=== PATIENT | female | born 1955 | race Caucasian/White ===

== ENCOUNTER 2019-09-19 17:31 | Emergency (ER) | payer MEDICARE, SELFPAY ==
[2019-09-19 17:33] VITALS: BP 171/108; PULSE 101; RESP 16; TEMP 37.2; O2SAT 96; BMI 26.6
--- NOTE | 2019-09-19 17:49 | ED.DCSUM_ITS ---
- ER Visit Summary Date of Service: 09/19/19 Chief Complaint: Right foot injury History of Present Illness: The patient is a 63 F who presents with injury to her right foot that occurred today. Patient states she was carrying a box and hit her fifth toe on the door frame. Patient states her toe is pointing in the wrong direction. Patient states her pain is sharp. Patient states her pain is worse with ambulation. Patient admits to some numbness and tingling initially but states this has resolved. Patient denies any weakness. Patient denies any other injuries. Physical Examination: Vital signs are stable. Patient is afebrile. Patient is in no acute distress. Musculoskeletal exam reveals tenderness and deformity of the right fifth toe. Pedal pulses are equal bilaterally. Sensation was intact light touch in all digits. Capillary refill was less than 2 seconds in all digits. Range of motion was limited in all motions of the right fifth toe secondary to pain. Test Results: X-rays of the right foot were obtained. There is a fracture of the fifth proximal phalanx. This was interpreted by the radiologist and reviewed by myself. Emergency Department Course and Treatment: Patient was given an ice pack. The right fifth toe was anesthetized with 1% plain lidocaine via digital block. The toe was reduced. The toe was estefany taped to the fourth toe. Patient was placed in a postop shoe. Patient was instructed to ice and elevate the right foot. Patient was instructed to follow-up with her primary care physician in 5 to 7 days. Patient understood and was agreeable with the plan. All questions were answered. Disposition: Discharge home Impression: Acute fracture right fifth proximal phalanx This note was generated with [employer] dictation software. It may contain incorrect words, spelling, and punctuation that were not noted in review of the chart prior to signing ED Disposition - Plan for ED Patient: Disposition: Home or Assisted Living Diagnosis: Fracture of fifth toe, right, closed Instructions: ED Fx Toe Closed Referrals: Tony Page MD [Primary Care Provider] - 5-7 Days
--- NOTE | 2019-09-19 17:54 | RAD_ITS ---
STUDY: X-RAY - RIGHT FOOT CLINICAL: Female, 63 years old. STUBBED RIGHT FOOT ON A DOOR FRAME, PINKY TOE IS DEFORMED TECHNIQUE: 3 view(s) of the foot. COMPARISON: None. FINDINGS: There is a mildly angulated mildly displaced fracture of the mid shaft fifth proximal phalanx. No other acute abnormalities. Normal talus, calcaneus, and tarsal bones. Normal visualized subtalar, talonavicular, calcaneocuboid, tarsal and tarsometatarsal articulations. Normal second-fifth metatarsi. Hallux valgus with markedly deformed distal fifth metatarsal. Normal tibial and fibular sesamoid bones. Normal interphalangeal joint of the great toe. Normal phalanges of the great toe. Normal second through fifth metatarsophalangeal joints. Normal interphalangeal joints and phalanges of the second-fourth toes. The soft tissue structures are unremarkable. RAD/Foot min 3 Views IMPRESSION: Fracture of the fifth proximal phalanx. Electronically Signed: Stewart Sanchez MD at 18:13 EDT , Service support ,
[2019-09-19 19:48] VITALS: BP 149/74; PULSE 79; RESP 16
== END 2019-09-19 19:51 | disposition home or self-care (01) ==
PROVIDERS: Emergency Provider Emergency Medicine; PCP Internal Medicine
DX: S92.501A Displaced unspecified fracture of right lesser toe(s), initial encounter for closed fracture (principal); W22.09XA Striking against other stationary object, initial encounter; F17.210 Nicotine dependence, cigarettes, uncomplicated
CPT/HCPCS: 28515; 73630; 99283

== ENCOUNTER 2022-02-11 23:28 | Emergency (ER) | payer MEDICARE, SELFPAY ==
[2022-02-11 23:29] VITALS: BP 167/87; PULSE 74; RESP 16; TEMP 36.6; O2SAT 97; BMI 25.8
[2022-02-11 23:41] VITALS: BP 167/81
--- NOTE | 2022-02-11 23:56 | CT_ITS ---
STUDY: CT BRAIN WITHOUT CONTRAST REASON FOR EXAM: Female, 66 years old. headache RADIATION DOSAGE (If Supplied By Facility): CTDIvol = ( 44.99 ) mGy, DLP = ( 748.30 ) mGycm TECHNIQUE: Transaxial CT imaging of the brain was performed without administration of intravenous contrast material. Individualized dose optimization techniques were used for this CT. COMPARISON: No relevant priors. FINDINGS: Normal soft tissue structures. Normal calvarium. Normal size ventricles and extra-axial spaces for the patient''s age. Normal white matter tracts of the cerebral hemispheres. Normal basal ganglia and thalami. Normal brainstem. Normal cerebellum. There is no intracranial hemorrhage. There are no findings of an acute ischemic infarction. Normal visualized paranasal sinuses. CT/Brain/Head without Contrast IMPRESSION: Normal unenhanced CT scan of the brain. Electronically Signed: Eloisa Carver MD at 1:02 EST ,
--- NOTE | 2022-02-11 23:56 | EKG12_ITS ---
Test Reason : DYSRHYTHMIA Blood Pressure : / mmHG Vent. Rate : 076 BPM Atrial Rate : 076 BPM P-R Int : 178 ms QRS Dur : 080 ms QT Int : 366 ms P-R-T Axes : 063 051 058 degrees QTc Int : 411 ms Normal sinus rhythm with sinus arrhythmia Normal ECG Confirmed by VIRGINIA WATTS, APRIL ([id number]), managing editor WESLEY GREENBERG ([id number]) on 02/15/2022 10:52:28 AM Referred By: VICTOR MANUEL Confirmed By:VIANEY COLEMAN MD
[2022-02-12 00:15] LABS: Absolute Lymphocyte Count 1.92 X10^3/uL (0.83-4.51); Absolute Neutrophil Count 3.2 X10^3/uL (2.0-7.7); Basophil# 0.05 X10^3/uL; Basophil% 0.9 % (0-1); Eosinophil# 0.12 X10^3/uL; Hemoglobin 14.2 g/dL (12.0-15.0); Lymphocyte # 1.92 X10^3/ul (0.83-4.51); Lymphocyte % 32.7 % (19-41); Mean Corpuscular Volume 87.8 fL (81-99); Mean Platelet Vol. 12.5 fl (6.2-12.0); Monocyte# 0.52 X10^3/uL; Monocyte% 8.8 % (0-10); NRBC Flagged by Analyzer 0 % (0-5); Neutrophil # 3.24 X10^3/uL (2.7-7.7); Neutrophil % 55.1 % (47-70); Platelet Count 206 K/mm3 (150-450); RBC Distribution Width CV 12.4 % (11.6-14.6); RBC Distribution Width SD 39.8 fl (35.1-43.9); White Blood Count 5.9 K/mm3 (4.4-11.0)
[2022-02-12] MEDS: cloNIDine HCl 0.1 MG Tablet PO (00:27)
[2022-02-12 00:29] VITALS: BP 149/89; PULSE 76
[2022-02-12 00:33] LABS: Anion Gap 4 (5-15); BUN 25 mg/dL (7-18); BUN/Creat Ratio 33.8 RATIO (10-20); Calcium,Total 9.5 mg/dL (8.5-10.1); Chloride 112 mmol/L (98-107); Creatinine, Serum 0.74 mg/dL (0.55-1.02); EST Glomerular Filtration Rate 83 mL/min (>60); Est Glom Filt Rate - Afr Amer 100 mL/min (>60); Estimated Creatinine Clearance 48.45 ml/min; Glucose 104 mg/dL (74-106); Potassium 3.5 mmol/L (3.5-5.1); Sodium Level 142 mmol/L (136-145); Troponin-I HS 10 pg/mL (3.0-54.0)
[2022-02-12 01:13] VITALS: BP 147/75; PULSE 79; RESP 15; O2SAT 98
--- NOTE | 2022-02-12 01:34 | EX.ED.DYSGE1 ---
HPI History of Present Illness Chief Complaint: Hypertension Narrative Narrative: Patient is a 66-year-old female who reports no significant past medical history. She states that she went for a follow-up surgical appointment today and in the office her blood pressure was elevated reading approximate 170/90. She states that she does not have a history of hypertension and that she typically runs 120/80. She states that she did not come to the hospital at that time because she had to go bowling this evening. She states she was able to bowl without difficulty but afterwards was concerned about the elevated blood pressure because she felt like her legs were kind of weak and she was slightly off balance and so she comes the ER for evaluation. She denies any chest pain or shortness of breath. She does report a mild headache at this time. She denies any stimulant use or illicit drug use PFSH PFSH Allergy/AdvReac Type Severity Reaction Status Date / Time acetaminophen [From Percocet] AdvReac Vomiting Verified 02/11/22 23:29 oxycodone [From Percocet] AdvReac Vomiting Verified 02/11/22 23:29 Social History Smoking Status: Current every day smoker tobacco type: cigarettes ROS ROS ED Constitutional Constitutional ED: Denies chills or fever(s) Eyes Eyes: Denies change in vision ENT ENT ED: Denies sore throat Cardiovascular Cardiovascular: Denies chest pain Respiratory/Chest Respiratory/Chest: Denies cough or dyspnea Gastrointestinal Gastrointestinal: Denies abdominal pain, diarrhea, nausea or vomiting Genitourinary Genitourinary ED: Denies dysuria Musculoskeletal Musculoskeletal: Denies myalgias Integumentary Denies rash Neurologic Neurologic: Reports headache(s) Psychiatric Psychiatric: Denies anxiety Hematologic/Lymphatic Hematologic/Lymphatic: Denies easy bleeding or easy bruising EXAM Physical Exam Const Vital Signs: 02/11/22 23:29 02/11/22 23:33 02/11/22 23:41 Temperature 98 F Temperature Source Temporal Pulse Rate 74 Respiratory Rate 16 Respiratory Effort Normal Respiratory Pattern Normal Blood Pressure 167/87 H 167/81 H Blood Pressure Mean 113 109 Pulse Ox 97 Oxygen Delivery Method Room Air 02/12/22 00:29 02/12/22 01:13 02/12/22 01:37 Temperature Temperature Source Pulse Rate 76 79 74 Respiratory Rate 15 24 H Respiratory Effort Respiratory Pattern Blood Pressure 149/89 H 147/75 H 147/84 H Blood Pressure Mean 109 99 Pulse Ox 98 97 Oxygen Delivery Method Room Air Positive well nourished and well developed General Appearance ED: well developed HEENT Reports moist mucous membranes Eyes PERRL and EOMs intact bilaterally Neck supple Neck Narrative: No nuchal rigidity or meningeal signs noted Resp normal respiratory effort and clear to auscultation bilaterally Cardio regular rate and regular rhythm Rate: other Other Details: Radial pulses are plus 2 out of 4 bilaterally are equal and symmetric GI normal to inspection, nondistended, normoactive bowel sounds, non-tender and non-distended GI Narrative: No voluntary guarding or rigidity no pulsatile mass Auscultation: normoactive bowel sounds Palpation: soft Back/Spine Back/Spine Narrative: No saddle anesthesia negative straight leg raise no clonus or Babinski patellar reflexes are plus 2 out of 4 bilaterally Extremity normal to inspection Neuro oriented x3 and CN's II-XII intact bilaterally Neuro Narrative: Cranial nerves II through XII are grossly intact there are no focal neurologic deficits. No pronator drift no dysmetria no truncal ataxia. NIH stroke scale score of 0. Sensorium / Orientation: alert Psych mental status grossly normal Skin no rashes or lesions noted MDM MDM MDM Narrative Medical decision making narrative: Patient presented to the ER mildly hypertensive with stroke scale score of 0. She denied any chest pain or change in vision or abdominal pain but did report a mild headache so elected perform a head CT as well as check for basic blood work to rule out endorgan damage. Head CT revealed no acute findings and labs revealed no signs of endorgan damage. She was given oral clonidine and her blood pressure reduced between 15 and 25% which is the value considered acceptable for ER reduction. On reevaluation she is resting comfortably neuro exam remains normal. Therefore at this time with improvement of blood pressure and no signs of endorgan damage on work-up she is otherwise safe for discharge. Lab Data Attestation: I reviewed the patient's lab results. Labs: Laboratory Results - last 24 hr 02/12/22 02/12/22 00:10 00:10 WBC 5.9 RBC 4.90 Hgb 14.2 Hct 43.0 MCV 87.8 MCH 29.0 MCHC 33.0 RDW Std Deviation 39.8 RDW Coeff of Dominga 12.4 Plt Count 206 MPV 12.5 H Immature Gran % (Auto) 0.500 Neut % (Auto) 55.1 Lymph % (Auto) 32.7 [place] % (Auto) 8.8 Eos % (Auto) 2.0 Baso % (Auto) 0.9 Absolute Neuts (auto) 3.2 Absolute Lymphs (auto) 1.92 Nucleated RBC % 0 Sodium 142 Potassium 3.5 Chloride 112 H Carbon Dioxide 26.0 Anion Gap 4 L BUN 25 H Creatinine 0.74 Estim Creat Clear Calc 48.45 Est GFR (MDRD) Af Amer 100 Est GFR (MDRD) Non-Af 83 BUN/Creatinine Ratio 33.8 H Glucose 104 Calcium 9.5 Troponin I High Sens 10 Radiography Diagnostic Testing: Clinical Impression(s) from Imaging Studies Brain CT 02/11/22 23:56 IMPRESSION: Normal unenhanced CT scan of the brain. Electronically Signed: Eloisa Carver MD at 1:02 EST , Discharge Plan Triage Chief Complaint: Hypertension ED Provider: Arnulfo Monson Dx/Rx/DC Orders Clinical Impression: Hypertension Instructions: ED Hypertension, To Be Confirmed Primary Care Provider: Tony Page Referrals: Tony Page MD [Primary Care Provider] - Activity Restrictions/Additional Instructions: Please can continue to monitor your blood pressure once or twice a week to confirm that you have truly developed hypertension. You were given 0.1 mg of clonidine in the ER which did help reduce your blood pressure to an acceptable value. The remainder of your work-up showed no signs of endorgan damage and your head CT was normal. If you have any further concerns return to the ER for repeat evaluation Disposition Disposition: Home, Self Care Discharge Date/Time: 02/12/22 01:45
[2022-02-12 01:37] VITALS: BP 147/84; PULSE 74; RESP 24; O2SAT 97
== END 2022-02-12 01:45 | disposition home or self-care (01) ==
PROVIDERS: Emergency Provider Emergency Medicine; PCP Internal Medicine; Visit Provider Emergency Medicine
DX: I10 Essential (primary) hypertension (principal); F17.210 Nicotine dependence, cigarettes, uncomplicated
CPT/HCPCS: 70450; 80048; 84484; 85025; 93005; 96374; 99284; A4216

== ENCOUNTER 2024-12-06 21:29 | Emergency (ER) | payer MEDICARE, SELFPAY ==
[2024-12-06 21:29] VITALS: BP 161/80; PULSE 100; RESP 19; TEMP 36.6; O2SAT 100; BMI 25.9
--- NOTE | 2024-12-06 22:17 | RAD_ITS ---
PROCEDURE: RAD/Wrist min 3 Views
[2024-12-06] MEDS: Ketorolac 30 MG/ML Syringe IM (22:21)
--- NOTE | 2024-12-07 00:13 | EX.ED.UPPERE ---
HPI History of Present Illness Chief Complaint: Upper Extremity Injury Informant: patient and family (Brother) Narrative Narrative: 69-year-old female states that on Tuesday morning when she woke she had pain in the dorsum of the left wrist. Has progressively gotten worse and is now swollen. She denies any fevers or systemic complaints. She denies any redness or known trauma. She has had a prior tendinitis surgery on the lateral aspect of the wrist as well as carpal tunnel surgery both of which were greater than 10 years ago. No history of gout or known rheumatologic issues. She denies any elbow symptoms. She removed her rings today as there was some mild swelling of the fingers but she has no pain in the hand at strictly on the dorsum of the wrist. PFSH PFSH Medical History no medical history Home Medications ?Medication ?Instructions ?Recorded ?Last Taken ?Type hydrocodone-acetaminophen 5-325mg 1 tab PO Q6H PRN pain 3 days #12 12/06/24 Unknown Rx 5mg-325mg tabs prednisone 20 mg tablet 60 mg (3 x 20 mg) PO DAILY #12 12/06/24 Unknown Rx TABLETS Allergy/AdvReac Type Severity Reaction Status Date / Time acetaminophen (From Percocet) AdvReac Vomiting Verified 12/06/24 21:30 oxycodone (From Percocet) AdvReac Vomiting Verified 12/06/24 21:30 Social History Smoking Status: Current every day smoker tobacco type: cigarettes ROS ROS ED Constitutional Constitutional ED: Denies chills, fever(s) or weight loss Eyes Eyes: Denies change in vision or diplopia ENT ENT ED: Denies ear pain, rhinorrhea or sore throat Cardiovascular Cardiovascular: Denies chest pain, orthopnea, palpitations or racing heartbeat Respiratory/Chest Respiratory/Chest: Denies cough, dyspnea or orthopnea Gastrointestinal Gastrointestinal: Denies abdominal pain, diarrhea, nausea or vomiting Genitourinary Genitourinary ED: Denies dysuria, hematuria or urinary frequency Musculoskeletal Musculoskeletal: Reports other Details: Left wrist pain ; Denies arthralgias, back pain, myalgias or neck pain Integumentary Denies abscess or rash Neurologic Neurologic: Denies headache(s), paresthesias or weakness Psychiatric Psychiatric: Denies anxiety, depression, suicidal ideation or suicidal thoughts Endocrine Endocrinology: Denies polydipsia, polyphagia or polyuria Allergic/Immunologic Allergic/Immunologic ED: Denies mouth swelling, tongue swelling or urticaria EXAM Physical Exam Const Vital Signs: 12/06/24 21:29 Temperature 97.8 F Temperature Source Oral Pulse Rate 100 Respiratory Rate 19 H Blood Pressure 161/80 H Blood Pressure Mean 107 Pulse Ox 100 Oxygen Delivery Method Room Air Positive well nourished and well developed General Appearance ED: well developed HEENT Reports normocephalic, head/scalp atraumatic and moist mucous membranes Eyes PERRL and EOMs intact bilaterally Neck no lymphadenopathy, supple and no JVD Resp normal respiratory effort and clear to auscultation bilaterally Cardio regular rate, regular rhythm and no murmurs GI normal to inspection, nondistended, normoactive bowel sounds and non-tender Palpation: soft Back/Spine no CVA tenderness and normal ROM Extremity Extremity Narrative: There is some mild swelling noted on the dorsum of the left wrist. There is painful supination pronation flexion and extension. There are well-healed surgical scars. Distally there is very minimal swelling of the fingers. No symptoms above the wrist joint. The skin is not red. There is slight warmth to it. General Extremety ED: Negative for edema General Extremity: Negative for edema Neuro oriented x3 and CN's II-XII intact bilaterally Sensorium / Orientation: alert Motor Exam: strength 5/5 throughout Psych mental status grossly normal Mood & Affect: Negative for depressed or tearful Skin no rashes or lesions noted and no wounds MDM MDM MDM Narrative Medical decision making narrative: Differential diagnosis includes fracture arthritis gout inflammatory joint disease infection My independent interpretation of the plain films is chondrocalcinosis. No fracture. No foreign body. Clinically the patient went to bed on Tuesday night feeling well woke with pain in the wrist and swelling. When I place her in a cock up splint. Would encourage anti-inflammatories. I can write for a few [place] for severe pain. I would also do a short burst of prednisone. Had asked that the patient follow-up either with primary care or with orthopedics if continued symptoms. Monitor for fever redness worsening symptoms and return if needed History & Record Review Discussion w/independent historian: Patient and Family Radiography Diagnostic Testing: Clinical Impression(s) from Imaging Studies Wrist X-Ray 12/06/24 22:17 IMPRESSION: No acute or aggressive osseous abnormality. Reading Location: [facility] Discharge Plan Triage Chief Complaint: Upper Extremity Injury ED Provider: Sandip Kaplan Dx/Rx/DC Orders Clinical Impression: Arthritis of left wrist, Swelling of left wrist Prescriptions: New hydrocodone-acetaminophen 5-325 mg tablet 1 tab PO Q6H PRN (Reason: pain) 3 Days Qty: 12 0RF prednisone 20 mg tablet 60 mg PO DAILY Qty: 12 0RF Primary Care Provider: Tony Page Referrals: Judd Levy MD [Med Staff - Active Staff, Orthopedics] - 3-5 Days if not improving Referral Note: for orthopedics Tony Page MD [Primary Care Provider, Internal Medicine] - 3-5 Days if not improving Activity Restrictions/Additional Instructions: I would recommend ice in 20-minute sessions 4-5 times per day. Wrist brace as tolerated especially while sleeping. If you do not wish to use the [place] I would recommend ibuprofen 600 mg 4 times a day as needed for pain. If you are not improving worsening or have concerns you may return to emergency or follow-up with primary care or orthopedics as discussed. Print Language: [place] Disposition Disposition: Home, Self Care Discharge Date/Time: 12/06/24 23:19
== END 2024-12-06 23:19 | disposition home or self-care (01) ==
PROVIDERS: Emergency Provider Emergency Medicine; PCP Internal Medicine; Visit Provider Emergency Medicine
DX: M19.032 Primary osteoarthritis, left wrist (principal); M79.89 Other specified soft tissue disorders; F17.210 Nicotine dependence, cigarettes, uncomplicated
CPT/HCPCS: 73110; 96372; 99283

== ENCOUNTER 2025-01-24 12:33 | Emergency (ER) | payer MEDICARE, SELFPAY ==
[2025-01-24 12:35] VITALS: BP 163/79; PULSE 104; RESP 18; TEMP 36.7; O2SAT 96
--- NOTE | 2025-01-24 14:28 | VDLE_ITS ---
Reason For Study Reason For Study: Right leg pain RIGHT LEFT GSV is normal. CFV is compressible, spontaneous, phasic, competent, CFV is compressible, spontaneous, phasic, competent and demonstrates normal augmentation. and demonstrates normal augmentation. FV is compressible, spontaneous, phasic, competent and demonstrates normal augmentation. POP V is compressible, spontaneous, phasic, competent and demonstrates normal augmentation. T/P Trunk is compressible. PTV is compressible. RT PerV is compressible. Procedure This is a venous duplex using B-mode, color flow and spectral Doppler. Exam performed in department. A preliminary report was called and/or faxed to Dr. Landis. VL/Venous Duplex US, Unilateral Interpretation Summary Deep veins of the right lower extremity are patent and compressible segmentally . There is no evidence of right lower extremity deep vein thrombosis. Valvular competence appears intact within the p roximal deep venous system on the right . The right great saphenous vein appears patent and compressible segmentally. The left common femoral vein is patent and compressible . Ordering Physician: Marco Landis Referring Physician: Tony Page M.D. Performed By: Rebecca Pollard RVT
--- NOTE | 2025-01-24 15:53 | EX.ED.DYSGE1 ---
HPI History of Present Illness Chief Complaint: Lower Extremity Injury Narrative Narrative: Patient is a 69-year-old female who presented to the emergency department the chief complaint of right knee pain and right leg swelling. Patient states that she is concerned that she may have a blood clot in her leg prompting her to come here for further evaluation management. Patient denies recent travel history denies any history of blood clots. Patient denies any direct trauma or injuries. Patient states that she has not taken anything for pain at home prior to coming here today. She notes that this has been going on for the last few days. PFSH PFSH Home Medications ?Medication ?Instructions ?Recorded ?Last Taken ?Type hydrocodone-acetaminophen 5-325mg 1 tab PO Q6H PRN pain 3 days #12 12/06/24 Unknown Rx 5mg-325mg tabs prednisone 20 mg tablet 60 mg (3 x 20 mg) PO DAILY #12 12/06/24 Unknown Rx TABLETS diclofenac sodium 3 % topical gel 1 applic topical BID PRN pain #100 01/24/25 Unknown Rx (Solaraze) grams Allergy/AdvReac Type Severity Reaction Status Date / Time oxycodone (From Percocet) AdvReac Vomiting Verified 01/24/25 12:38 Social History Smoking Status: Current every day smoker tobacco type: cigarettes ROS ROS ED ROS Narrative Constitutional: Denies any fevers or chills Neurological: Denies any numbness, weeks, tingling Musculoskeletal: Complains of right leg pain and swelling as noted above Skin: Denies any redness, rashes or lesions EXAM Physical Exam Narrative Exam Narrative: General: Patient is l sitting in wheelchair in the hallway rest comfortably did not appear to be in acute distress Head: Atraumatic, normocephalic Eyes: PERRL bilaterally, EOMI bilaterally, no conjunctival injection noted Neck: Soft, supple, trachea midline Cardiovascular: Patient tachycardic with a regular rhythm Musculoskeletal: Compartments are soft and compressible of the right lower extremity 1+ edema in the right lower extremity compared to the left. Patient does have full range of motion of her right knee no short arc syndrome Extremities: DP pulses +2/4 in the bilateral lower extremities, +4/5 strength noted in the bilateral upper and lower extremities Neurological: Patient following commands knew that she was at [facility] the year is 2024 sensation grossly intact Skin: Warm, dry, intact no rashes or lesions noted no petechia no purpura Const Vital Signs: 01/24/25 12:35 Temperature 98.1 F Temperature Source Temporal Pulse Rate 104 H Respiratory Rate 18 Blood Pressure 163/79 H Blood Pressure Mean 107 Pulse Ox 96 Oxygen Delivery Method Room Air MDM MDM MDM Narrative Medical decision making narrative: Patient is a 69-year-old female who presented to the emergency department with a concern for blood clot in her right lower extremity. On the differential diagnose includes but not limited to DVT, superficial venous thrombosis, osteoarthritis. Once workup is obtained and reviewed she will be reevaluated. Patient's ultrasound returned and showed no evidence of DVT or superficial venous thrombosis. I discussed the results with the patient and I advised her she should rotate Tylenol and ibuprofen [id number] and educated her on how to do so. I will prescribe her Voltaren gel for her knee pain as well. She did inquire about steroids and I said this is not a benign drug and she should follow-up with her doctor on this as well if her symptoms do not improve. She was encouraged to elevate her leg when sitting down. She was encouraged to return with worsening symptoms or any concerns. All question concerns answered she was discharged home in stable condition patient was given a shot of IM Toradol prior to discharge Discharge Plan Triage Chief Complaint: Lower Extremity Injury ED Provider: Marco Landis Dx/Rx/DC Orders Clinical Impression: Localized swelling of right lower leg, Knee pain, right, Musculoskeletal strain Prescriptions: New diclofenac sodium [Solaraze] 3 % gel 1 applic topical BID PRN (Reason: pain) Qty: 100 0RF No Action hydrocodone-acetaminophen 5-325 mg tablet 1 tab PO Q6H PRN (Reason: pain) 3 Days Qty: 12 0RF prednisone 20 mg tablet 60 mg PO DAILY Qty: 12 0RF Primary Care Provider: Tony Page Referrals: Tony Page MD [Primary Care Provider, Internal Medicine] Activity Restrictions/Additional Instructions: Follow-up with your doctor in the outpatient setting your ultrasound did not show any evidence of blood clot. Rotate Tylenol and ibuprofen [id number] when you do this you can take something every 3 hours for pain max dose of Tylenol in 24 hours 4000 mg max dose of ibuprofen in 24 hours 3200 mg. Use the Voltaren gel as prescribed as well. Print Language: Bahamian Disposition Disposition: Home, Self Care
== END 2025-01-24 16:25 | disposition home or self-care (01) ==
PROVIDERS: Emergency Provider Emergency Medicine; PCP Internal Medicine; Visit Provider Emergency Medicine
DX: M25.561 Pain in right knee (principal); R22.41 Localized swelling, mass and lump, right lower limb; F17.210 Nicotine dependence, cigarettes, uncomplicated
CPT/HCPCS: 93971; 96372; 99283